=== PATIENT | female | born 1940 | race Asian ===

== ENCOUNTER 2023-04-10 19:26 | Inpatient (IN) | payer MEDICARE, OTHER ==
[~2023-04-10] VITALS: Ht 152.4 cm; Wt 54.0 kg
[2023-04-10] MEDS ORDERED: LORAZEPAM 2 MG/1 ML VIAL ONE (20:53)
[2023-04-10] MEDS ORDERED: DIVA250T4 PO (21:02)
[2023-04-10] MEDS ORDERED: IBUP-76 PO (21:02)
[2023-04-10] MEDS ORDERED: LORA0.5T48 PO (21:02)
[2023-04-10] MEDS ORDERED: NIFE-35 PO (21:02)
[2023-04-10] MEDS ORDERED: MAGN400O6 PO (21:02)
[2023-04-10] MEDS ORDERED: DIPH25CA83 PO (21:02)
[2023-04-10] MEDS ORDERED: NA P133E RC (21:02)
[2023-04-10] MEDS ORDERED: MULT-213 PO (21:02)
[2023-04-10] MEDS ORDERED: ACET-73 PO (21:02)
[2023-04-10] MEDS ORDERED: ASCO500C18 PO (21:02)
[2023-04-10] MEDS ORDERED: TEA30SPR TP (21:02)
[2023-04-10] MEDS ORDERED: QUET50TA PO (21:02)
[2023-04-10] MEDS ORDERED: ACET-3117 PO (21:02)
[2023-04-10] MEDS: LORAZEPAM 2 MG/1 ML VIAL IM ONE (21:08)
[2023-04-10] MEDS ORDERED: HALOPERIDOL LACTATE 5 MG/1 ML VIAL ONE (21:15)
[2023-04-10] MEDS: HALOPERIDOL LACTATE 5 MG/1 ML VIAL IM ONE (21:20)
[2023-04-10 21:45] LABS: *BILIRUBIN,URIN NEGATIVE (NEGATIVE); *BLOOD, URINE NEGATIVE (NEGATIVE); *CLARITY,URINE CLEAR (CLEAR); *COLOR,URINE YELLOW (YELLOW); *KETONES,URINE NEGATIVE (NEGATIVE); *PROTEIN,URINE NEGATIVE (NEGATIVE); *UROBILINOGEN,URINE 0.2 E.U./dl (NORMAL); LEUKOCYTE ESTERASE ,URINE 1+ (NEGATIVE); NITRITE, URINE POSITIVE (NEGATIVE); UGLUCOSE NEGATIVE (NEGATIVE)
[2023-04-10 21:48] LABS: *AMPHETAMINE, URINE NEGATIVE (NEGATIVE); *BARBITURATE, URINE NEGATIVE (NEGATIVE); *BENZODIAZEPINE, URINE NEGATIVE (NEGATIVE); *CANNABINOID, URINE NEGATIVE (NEGATIVE); *COCCAINE, URINE NEGATIVE (NEGATIVE); *OPIATE, URINE NEGATIVE (NEGATIVE); *PHENCYCLIDINE SCREEN,URINE NEGATIVE (NEGATIVE); FENTANYL, URINE NEGATIVE (NEGATIVE)
[2023-04-10 21:48] LABS: CALCIUM 8.8 mg/dL (8.5-10.1); CARBON DIOXIDE 28 mmol/L (21-32); CHLORIDE 104 mmol/L (98-107); CREATININE 0.7 mg/dL (0.6-1.3); GLUCOSE 110 mg/dL (74-106); POTASSIUM 4.1 mmol/L (3.5-5.1); SODIUM SERUM 142 mmol/L (136-145); UREA NITROGEN, BLOOD 21 mg/dL (7-18)
[2023-04-10 21:49] LABS: ETHANOL < 3 MG/DL (0-10)
[2023-04-10 21:50] LABS: BASOPHILS % (AUTO) 0.4 % (0.0-2.0); DIFFERENTIAL COMMENT 0; EOSINOPHILS # (AUTO) 0.1 K/uL (0.0-0.7); EOSINOPHILS % (AUTO) 2.3 % (0.0-7.0); HEMOGLOBIN 12.8 g/dL (10.9-14.3); LYMPHOCYTES # (AUTO) 1.9 K/uL (0.8-4.8); LYMPHOCYTES % (AUTO) 33.9 % (20.5-51.5); MEAN CORPUSCULAR HGB CONC 34 g/dL (32.3-35.6); MONOCYTES # (AUTO) 0.4 K/uL (0.1-1.30); MONOCYTES % (AUTO) 7.9 % (0.0-11.0); NEUTROPHILS # (AUTO) 3.1 K/uL (1.8-8.9); NEUTROPHILS % (AUTO) 55.5 % (38.5-71.5); PLATELET COUNT (AUTO) 153 K/uL (179-408); RED CELL DISTRIBUTION WIDTH 14.2 % (12.3-17.7); WHITE BLOOD COUNT (AUTO) 5.6 K/uL (3.8-11.8)
[2023-04-10 21:55] LABS: BACTERIA,URINE MANY /HPF (NONE SEEN); SQUAMOUS EPITHELIAL CELL,UR FEW /HPF (NONE SEEN); WBC,URINE 80-100 /HPF (0-3)
[2023-04-10 21:59] LABS: ALANINE AMINOTRANSFERASE 17 U/L (14-59); ALBUMIN 3.6 g/dL (3.4-5.0); ALKALINE PHOSPHATASE 127 U/L (50-136); ASPARTATE AMINOTRANSFERASE 28 U/L (15-37); BILIRUBIN,DIRECT 0.1 mg/dL (0.0-0.2); BILIRUBIN,TOTAL 0.3 mg/dL (0.2-1.0); TOTAL PROTEIN, SERUM 7.5 g/dL (6.4-8.2)
[2023-04-10] MEDS ORDERED: LIDOCAINE HCL 1% 20 ML VIAL ONE (22:21)
[2023-04-10] MEDS: CEFTRIAXONE 1 G VIAL IM ONE (22:30)
[2023-04-11] MEDS ORDERED: MAG HYDROX/AL HYDROX/SIMETH 30 ML LIQUID UDC PO PRN (04:15)
[2023-04-11] MEDS ORDERED: ACETAMINOPHEN 325 MG TABLET PO PRN (04:15)
[2023-04-11] MEDS ORDERED: MAGNESIUM HYDROXIDE 30 ML LIQUID UDC PO PRN (04:15)
[2023-04-11 08:00] VITALS: BP 158/94; TEMP 97.6; O2SAT 94
[2023-04-11] MEDS ORDERED: ASCO500T85 PO (10:32)
[2023-04-11] MEDS ORDERED: ACET325T53 PO (10:33)
[2023-04-11] MEDS: QUETIAPINE FUMARATE 25 MG TABLET PO SCH ×2 (11:00→20:15)
[2023-04-11] MEDS: DIVALPROEX SPRINKLE 125 MG CAP.SPRINK PO SCH (13:37)
[2023-04-11 15:54] VITALS: BP 180/101; TEMP 97.8; O2SAT 96
[2023-04-11] MEDS ORDERED: IBUPROFEN 200 MG TABLET PO PRN (16:15)
[2023-04-11] MEDS ORDERED: CEFTRIAXONE 1 G VIAL IM SCH ×2 (17:00→18:00)
[2023-04-11] MEDS: NIFEdipine XL 30 MG TABSR PO SCH (18:12)
[2023-04-11 19:00] VITALS: BP 110/69; TEMP 98.7; O2SAT 99
[2023-04-11 20:00] VITALS: BP 111/74; TEMP 98.7; O2SAT 95
[2023-04-11] MEDS: TEMAZEPAM 7.5 MG CAPSULE PO PRN (21:14)
[2023-04-11] MEDS: CEFTRIAXONE 1 G VIAL IM SCH (22:30)
[2023-04-12] MEDS: ASCORBIC ACID 500 MG TABLET PO SCH (08:11)
[2023-04-12] MEDS: MULTIVITAMINS,THERAPEUTIC TABLET PO SCH (08:11)
[2023-04-12 08:17] VITALS: BP 120/65; TEMP 98; O2SAT 95
[2023-04-12] MEDS: LORAZEPAM 1 MG TABLET PO PRN (12:34)
[2023-04-12 16:26] VITALS: BP 115/73; TEMP 98.1; O2SAT 95
[2023-04-12 20:00] VITALS: BP 123/72; TEMP 98.1; O2SAT 93
[2023-04-13 08:45] VITALS: BP 113/76; TEMP 98; O2SAT 96
[2023-04-13 15:56] VITALS: BP 110/66; TEMP 98; O2SAT 96
[2023-04-13 19:56] VITALS: BP 121/67; TEMP 97.8; O2SAT 94
[2023-04-14 07:35] LABS: BASOPHILS % (AUTO) 0.5 % (0.0-2.0); EOSINOPHILS # (AUTO) 0.2 K/uL (0.0-0.7); EOSINOPHILS % (AUTO) 3.7 % (0.0-7.0); HEMATOCRIT 35.9 % (31.2-41.9); HEMOGLOBIN 12.2 g/dL (10.9-14.3); LYMPHOCYTES # (AUTO) 0.9 K/uL (0.8-4.8); MEAN CORPUSCULAR HEMOGLOBIN 31.9 uug (24.7-32.8); MEAN CORPUSCULAR HGB CONC 34 g/dL (32.3-35.6); MEAN CORPUSCULAR VOLUME 93.9 fL (75.5-95.3); MONOCYTES # (AUTO) 0.4 K/uL (0.1-1.30); MONOCYTES % (AUTO) 7.9 % (0.0-11.0); NEUTROPHILS # (AUTO) 3.4 K/uL (1.8-8.9); NEUTROPHILS % (AUTO) 69.9 % (38.5-71.5); PLATELET COUNT (AUTO) 171 K/uL (179-408); RED BLOOD CELL COUNT(AUTO) 3.82 MIL/uL (3.63-4.92); RED CELL DISTRIBUTION WIDTH 14.2 % (12.3-17.7); WHITE BLOOD COUNT (AUTO) 4.8 K/uL (3.8-11.8)
[2023-04-14 07:42] LABS: DIFFERENTIAL COMMENT 1
[2023-04-14 07:50] LABS: ALANINE AMINOTRANSFERASE 9 U/L (14-59); ALBUMIN 2.9 g/dL (3.4-5.0); ALKALINE PHOSPHATASE 91 U/L (50-136); ASPARTATE AMINOTRANSFERASE 11 U/L (15-37); BILIRUBIN,TOTAL 0.4 mg/dL (0.2-1.0); CALCIUM 8.1 mg/dL (8.5-10.1); CARBON DIOXIDE 29 mmol/L (21-32); CHLORIDE 107 mmol/L (98-107); CREATININE 0.5 mg/dL (0.6-1.3); GLUCOSE 84 mg/dL (74-106); POTASSIUM 3.7 mmol/L (3.5-5.1); SODIUM SERUM 142 mmol/L (136-145); UREA NITROGEN, BLOOD 19 mg/dL (7-18); VALPROIC ACID 49 ug/mL (50-100)
[2023-04-14 08:07] VITALS: BP 147/79; TEMP 97.6; O2SAT 97
[2023-04-14] MEDS: QUETIAPINE FUMARATE 25 MG TABLET PO SCH (12:39)
[2023-04-14 16:14] VITALS: BP 149/86; TEMP 98.7; O2SAT 96
[2023-04-14 19:56] VITALS: BP 123/67; TEMP 98.1; O2SAT 95
[2023-04-15 08:47] VITALS: BP 142/90; TEMP 97.8; O2SAT 96
[2023-04-15 15:55] VITALS: BP 94/58; TEMP 98.6; O2SAT 93
[2023-04-15 20:25] VITALS: BP 161/93; TEMP 97.9; O2SAT 94
[2023-04-16 08:01] VITALS: BP 100/62; TEMP 98; O2SAT 96
[2023-04-16 15:18] VITALS: BP 151/82; TEMP 98; O2SAT 95
[2023-04-16 20:00] VITALS: BP_SYST 140; BP_DIAS 53; BP_DIAS 72; TEMP 97.9; TEMP 98.4; O2SAT 93; O2SAT 97
[2023-04-17 10:33] VITALS: BP 126/71; TEMP 97.4; O2SAT 97
[2023-04-17 15:37] VITALS: BP 151/90; TEMP 98.2; O2SAT 95
[2023-04-17 20:00] VITALS: BP 104/72; TEMP 98; O2SAT 93
[2023-04-18 08:02] VITALS: BP 116/61; TEMP 98; O2SAT 96
[2023-04-18 12:22] VITALS: BP 102/75
== END 2023-04-18 12:35 | DRG 885 ==
LOC: ER 19:32 → GPS 04-11 01:00
PROVIDERS: ADMIT Psychiatry & Neurology Psychosomatic Medicine; ATTEND Nurse Practitioner Acute Care
DX: F29 Unspecified psychosis not due to a substance or known physiological condition (principal); G93.41 Metabolic encephalopathy; F03.911 Unspecified dementia, unspecified severity, with agitation; F03.93 Unspecified dementia, unspecified severity, with mood disturbance; N39.0 Urinary tract infection, site not specified; B96.20 Unspecified Escherichia coli [E. coli] as the cause of diseases classified elsewhere; Z79.899 Other long term (current) drug therapy; I10 Essential (primary) hypertension; M19.90 Unspecified osteoarthritis, unspecified site
CPT/HCPCS: 36415; 80164; 85025; 93005; A4606; A4663; G0480; J0696; J1630; J2060; J3490